=== PATIENT | male | born 1970 | race Two or more races ===

== ENCOUNTER 2016-10-22 17:39 | Emergency (ER) | payer BC ==
[2016-10-22 20:33] LABS: SPECIFIC GRAVITY 1.015 (1.001-1.030); URINE APPEARANCE CLEAR; URINE BILIRUBIN NEGATIVE (NEGATIVE); URINE BLOOD TRACE (NEGATIVE); URINE COLOR YELLOW; URINE GLUCOSE (UA) NEGATIVE (NEGATIVE); URINE LEUKOCYTE ESTERASE NEGATIVE (NEGATIVE); URINE NITRITE NEGATIVE (NEGATIVE); URINE PROTEIN TRACE (NEGATIVE); URINE UROBILINOGEN NORMAL (0-1 mg/dl)
--- NOTE | 2016-10-22 20:35 | CT ---
ABD/PELVIS W/O CON COMPARISON: None HISTORY: Low back pain for one month. No injury. Technique: Using a [employer] [address] scanner, images were obtained from the diaphragm to the floor the pelvis. No intravenous contrast. An automated dose reduction technique was used to minimize patient radiation dose. Dose: CTDIvol (mGy): 11.40 DLP(mGycm): 567.30 FINDINGS: Lung bases: Normal Inferior mediastinum and heart: Normal Liver: Normal Gallbladder: Normal Bile ducts: Normal. Pancreas: Normal Spleen: 3 calcified granulomas. Adrenal glands: Normal Kidneys: Normal Ureters: Normal Urinary bladder: Normal Prostate gland and seminal vesicles: Normal Blood vessels: Normal. Lymph nodes: Normal Stomach: Normal Duodenum: Normal Small intestine: Normal Appendix: Normal Colon: Diverticulosis. No diverticulitis. Abdominal wall and supporting musculature: Normal Bones: Bilateral pars defects at L5 with minimal grade 1 anterolisthesis. No acute finding. IMPRESSION: 1. Grade 1 spondylolytic spondylolisthesis of L5 upon the sacrum. No acute finding. 2. Incidentally noted diverticulosis of the sigmoid colon. No diverticulitis. The report was sent to the emergency department [employer] [facility] record [facility] 10/22/2016 at 20:36
[2016-10-22 20:38] LABS: URINE BACTERIA 0; URINE EPITHELIAL CELLS RARE /hpf; URINE WBC NEG /hpf
[2016-10-22] MEDS ORDERED: PREDNISONE 20 MG TABLET ONE (20:40)
== END 2016-10-22 21:00 | disposition home or self-care (01) ==
LOC: ED 17:39
DX: M47.816 Spondylosis without myelopathy or radiculopathy, lumbar region (principal); K57.90 Diverticulosis of intestine, part unspecified, without perforation or abscess without bleeding